=== PATIENT | male | born 1980 | race Hispanic/Latino ===

== ENCOUNTER 2016-11-06 15:29 | Emergency (ER) | payer OTHER ==
[2016-11-06] MEDS ORDERED: Lidocaine 1% 20 ML MDV ONE (16:04)
[2016-11-06] MEDS ORDERED: traMADol HCl 50 MG TAB ONE ×2 (16:30→16:46)
[2016-11-06] MEDS ORDERED: Adacel (T-DAP) 0.5 ML VIAL ONE (16:37)
== END 2016-11-06 16:54 | disposition home or self-care (01) ==
LOC: NAV ERS 15:29
DX: S01.81XA Laceration without foreign body of other part of head, initial encounter (principal); W22.8XXA Striking against or struck by other objects, initial encounter
CPT/HCPCS: 12013; 90471; 90715; 99001; J2001